=== PATIENT | female | born 1995 | race Caucasian/White ===

== ENCOUNTER 2019-06-17 10:41 | Emergency (ER) | payer OTHER, MEDICAID | END 2019-06-17 13:57 | disposition home or self-care (01) | LOC: FTE 10:41 | DX: O20.9 Hemorrhage in early pregnancy, unspecified (principal); O13.1 Gestational [pregnancy-induced] hypertension without significant proteinuria, first trimester; Z3A.01 Less than 8 weeks gestation of pregnancy | CPT/HCPCS: 36415; 76801; 76817; 80053; 81001; 83690; 84702; 85025; 86900; 86901; 87086; 99284-25 ==